=== PATIENT | female | born 1970 | race Caucasian/White ===

== ENCOUNTER 2020-11-04 02:05 | Emergency (ER) | payer OTHER ==
[~2020-11-04] VITALS: Ht 162.6 cm; Wt 66.7 kg
[2020-11-04 02:09] VITALS: BP_SYST 18
--- NOTE | 2020-11-04 02:09 | NUR ---
Patient to ER bed 1 to gown for evaluation. Side rails up.
--- NOTE | 2020-11-04 02:16 | NUR ---
ER Dr. Santiago at bedside examining patient.
--- NOTE | 2020-11-04 02:16 | NUR ---
ER at bedside examining patient.
--- NOTE | 2020-11-04 02:20 | NUR ---
pt alert and oriented x4 from home c/o difficulty swallowing and throat swelling for the past 45 mins. pt denies shortness of breath, tongue/lip swelling, eating any new foods/medicines. pt reports allergies to sulfa but denies any other allergies. pt able to speak in full sentences and able to understand. pt reports recent new onsent of emotional troubles in personal life.
[2020-11-04] MEDS ORDERED: cefTRIAXone 1 GM in LIDOCAINE 1%, 20 ML MDV 2.1 ML IM ONE (02:30)
[2020-11-04] MEDS ORDERED: methylPREDNISolone SOD SUCC/PF 62.5 MG/ML VIAL IM ONE (02:30)
[2020-11-04] MEDS ORDERED: cefTRIAXone 1 GM VIAL ONE (02:42)
[2020-11-04] MEDS ORDERED: LIDOCAINE 1%, 20 ML MDV 20 ML ONE (02:43)
--- NOTE | 2020-11-04 02:56 | NUR ---
patient medicated per MD order. patient tolerated well.
--- NOTE | 2020-11-04 03:01 | NUR ---
patient ambulated to restroom with steady gait.
--- NOTE | 2020-11-04 03:47 | NUR ---
patient reports she feels an improvement in swallowing and in her throat after received medications. aware.
[2020-11-04 04:10] VITALS: BP_SYST 122
--- NOTE | 2020-11-04 04:10 | NUR ---
Patient given written and verbal discharge instructions and verbalizes understanding. ER MD discussed with patient the results and treatment provided. Patient in stable condition. ID arm band removed. Rx of augmentin and prednisone given. Patient educated on pain management and to follow up with PMD. Pain Scale 0/10. Opportunity for questions provided and answered. Medication side effect fact sheet provided.
== END 2020-11-04 04:10 | disposition home or self-care (01) ==
LOC: SED 02:05
DX: K12.2 Cellulitis and abscess of mouth (principal); Z88.2 Allergy status to sulfonamides
CPT/HCPCS: 96372; 99291; J0696; J2001; J2930

== ENCOUNTER 2022-10-18 13:07 | Emergency (ER) | payer OTHER ==
[~2022-10-18] VITALS: Ht 162.6 cm; Wt 57.6 kg
[2022-10-18 13:10] VITALS: BP_SYST 120
--- NOTE | 2022-10-18 13:11 | NUR ---
Patient triaged and placed in waiting room. VSS and patient appears in no acute distress at this time. Accompanied by SELF, awaiting available bed, and MD notified of need for MSE.
--- NOTE | 2022-10-18 14:10 | NUR ---
DR OUT TO TRIAGE ROOM TO EVALUATE PT, UNABLE TO LOCATE PT IN WAITING ROOM
--- NOTE | 2022-10-18 14:31 | NUR ---
UNABLE TO LOCATE PT IN WAITING ROOM
--- NOTE | 2022-10-18 14:41 | NUR ---
PT LEFT WITHOUT BEING SEEN
--- NOTE | 2022-10-18 14:41 | NUR ---
UNABLE TO LOCATE PT IN WAITING ROOM
== END 2022-10-18 14:41 | disposition left against medical advice (07) ==
LOC: SED 13:07
DX: R13.10 Dysphagia, unspecified (principal); Z53.21 Procedure and treatment not carried out due to patient leaving prior to being seen by health care provider

== ENCOUNTER 2023-03-09 10:08 | Emergency (ER) | payer OTHER ==
[~2023-03-09] VITALS: Ht 162.6 cm; Wt 57.6 kg
[2023-03-09 10:12] VITALS: BP_SYST 143
--- NOTE | 2023-03-09 10:48 | NUR ---
BIBS FOR DOG BITE TO RIGHT HAND X 1.5 HOURS AGO. BLEEDING CONTROLLED. NOTED WITH LACERATION TO RIGHT 5 TH DIGIT. BLEEDING CONTROLLED. ABLE TO BEND FINGER. SLIGHT SWELLING NOTED. CSMPT INTACT. DOESN'T REMEMBER LAST TETANUS SHOT. AAO X4. REPS EVEN AND NONLABORED. VSS
[2023-03-09] MEDS ORDERED: IBUPROFEN 600 MG TABLET PO ONE (11:00)
[2023-03-09] MEDS ORDERED: DIPHTH,PERTUSS(ACELL),TET VAC 0.5 ML VIAL (Tdap) I.M. ONE (11:00)
[2023-03-09] MEDS ORDERED: IBUP-1969 PO (11:03)
[2023-03-09] MEDS ORDERED: AMOX-423 PO (11:03)
[2023-03-09] MEDS: HYDROcodone/ACETAMIN 10-325 MG TAB PO ONE ×2 (11:05→11:12)
--- NOTE | 2023-03-09 11:13 | NUR ---
MEDICATED FOR PAIN. AWAITING XRAY.
--- NOTE | 2023-03-09 12:51 | NUR ---
MD SOTO AT BEDSIDE FOR LAC REPAIR
[2023-03-09] MEDS ORDERED: OXYC-128 PO (13:25)
[2023-03-09] MEDS ORDERED: BACITRACIN 1 GM OINT TP ONE (13:26)
[2023-03-09] MEDS ORDERED: AMOXICILLIN/POTASSIUM CLAV 875 MG TABLET PO ONE (13:30)
[2023-03-09 13:57] VITALS: BP_SYST 138
--- NOTE | 2023-03-09 13:59 | NUR ---
Patient given written and verbal discharge instructions and verbalizes understanding. ER MD discussed with patient the results and treatment provided. Patient in stable condition. ID arm band removed Rx given. Patient educated on pain management and to follow up with PMD. Pain Scale 3/10. Opportunity for questions provided and answered. Medication side effect fact sheet provided. ambulatory with steady gait
== END 2023-03-09 13:59 | disposition home or self-care (01) ==
LOC: SED 10:08
DX: S61.216A Laceration without foreign body of right little finger without damage to nail, initial encounter (principal); S61.451A Open bite of right hand, initial encounter; F17.210 Nicotine dependence, cigarettes, uncomplicated; Z88.2 Allergy status to sulfonamides; Z79.899 Other long term (current) drug therapy; W54.0XXA Bitten by dog, initial encounter; Y93.89 Activity, other specified; Y92.89 Other specified places as the place of occurrence of the external cause; Y99.8 Other external cause status
CPT/HCPCS: 73140-TC; 90715; 99284